=== PATIENT | male | born 1995 | race Caucasian/White ===

== ENCOUNTER → 2019-02-07 18:21 | Outpatient (CLI) | payer OTHER, SELFPAY ==
[2014-08-09 20:55] VITALS: BMI 27.3
[2019-02-07 19:09] LABS: Anion Gap 9 (5-15); BUN 12 mg/dL (7-18); BUN/Creat Ratio 10.8 RATIO (10-20); Calcium,Total 9.5 mg/dL (8.5-10.1); Chloride 106 mmol/L (98-107); Cholesterol 193 mg/dL (200); Creatinine, Serum 1.11 mg/dL (0.70-1.30); EST Glomerular Filtration Rate 86 mL/min (>60); Est Glom Filt Rate - Afr Amer 104 mL/min (>60); Glucose 78 mg/dL (74-106); High Density Lipoprotein 42 mg/dL; Potassium 3.9 mmol/L (3.5-5.1); Sodium Level 141 mmol/L (136-145); Thyroid Stim Hormone (TSH) 1.17 uIU/mL (0.358-3.74); Triglycerides 90 mg/dL; Very Low Density Lipoprotein 18 mg/dL (5-40)
== END ==
PROVIDERS: Family Provider Family Medicine; PCP Family Medicine; Referring Provider Family Medicine; Visit Provider Family Medicine
DX: I10 Essential (primary) hypertension (principal)
CPT/HCPCS: 80048; 80061; 84443

== ENCOUNTER → 2019-02-17 08:06 | Outpatient (CLI) | payer OTHER, SELFPAY ==
--- NOTE | 2019-02-17 08:11 | RDU_ITS ---
Reason For Study: HYPERTENSION Right Renal Artery Left Renal Artery Right renal artery ostium 120/31.8 Left renal artery ostium 134/30.6 RSV/EDV. PSV/EDV. Right renal artery proximal Left renal artery proximal PSV/EDV 127/37.4 PSV/EDV. 126/34.2 . Right renal artery mid 123/37 Left renal artery mid 120/40.3 PSV/EDV. PSV/EDV . Right renal artery distal 141/45.5 Left renal artery distal 131/36.5 PSV/EDV. PSV/EDV. Right Renal Parenchyma Left Renal Parenchyma Upper Pole Medula 45.8/14.1 Left upper pole medulla 45.1/14.1 PSV/EDV. PSV/EDV . Right upper pole medulla EDR .31 . Left upper pole medulla EDR .32 . Right upper pole medulla R.I. .69 . Left upper pole medulla R.I. .69 . Upper Ranjan Cortx 45.8/14.4 PSV/EDV. UP Cortex 32.4/12.3 PSV/EDV. Right upper pole cortex EDR .31 . Left upper pole cortex EDR .38 . Right upper pole cortex R.I. .69 . Left upper pole cortex R.I. .62 . Right lower Pole medulla 49.2/16.2 Left lower Pole medulla 45.1/14.6 PSV/EDV . PSV/EDV . Right lower pole medulla EDR .33 . Left lower pole medulla EDR .32 . Right lower pole medulla R.I. .67 . Left lower pole medulla R.I. .68 . Lower Pole Cortex 32.1/8.6 PSV/EDV. Lower Pole Cortx 27.4/11.4 PSV/EDV. Right lower pole cortex EDR .27 . Left lower pole cortex EDR .42 . Right lower pole cortex R.I. .73 . Left lower pole cortex R.I. .58 . Right Renal Hilar Left Renal Hilar Right Hilar avg 88.6/19.6 PSV/EDV. LT Hilar avg 71.6/17.3 PSV/EDV . Right hilar acceleration time 51 Left hilar acceleration time 37 m/sec. m/sec. Right Renal Dimensions Left Renal Dimensions Right kidney size 11.4 cm . Left kidney size 12.0 cm . Right cortical dimension 1.5 cm . Left cortical dimension 1.5 cm . Aorta Proximal abdominal aorta 1.6 X 1.5 cm . Distal abdominal aorta 1.3 X 1.4 cm . Proximal abdominal aorta peak systolic velocity is 163 cm/sec . Distal abdominal aorta peak systolic velocity is 115 cm/sec . Interpretation Summary Dimensions of the intra-abdominal aorta appear normal, without evidence of aneurysmal dilatation. Renal artery velocities are bilaterally normal. Acceleration times are normal bilaterally. There is no evidence of hemodynamically significant renal artery stenosis on either side. Renovascular resistance appears to be bilaterally normal . Cortical dimensions are bilaterally normal. Kidneys appear normal in size bilaterally. Ordering Physician: Esther Presley Referring Physician: Esther Presley Performed By: Eleni Bundy RVT
== END ==
PROVIDERS: Family Provider Family Medicine; PCP Family Medicine; Referring Provider Family Medicine; Visit Provider Family Medicine
DX: I10 Essential (primary) hypertension (principal)
CPT/HCPCS: 93975

== ENCOUNTER → 2021-08-18 | Outpatient (CLI) | payer OTHER, SELFPAY | END | disposition home or self-care (01) | LOC: LABSPEC 08-19 08:51 | PROVIDERS: PCP Family Medicine; Referring Provider Family Medicine; Visit Provider Family Medicine | DX: J20.9 Acute bronchitis, unspecified (principal) | CPT/HCPCS: 87635; U0003 ==

== ENCOUNTER 2021-11-11 14:48 | Day surgery (SDC) | payer OTHER, SELFPAY ==
[2021-11-11] VITALS (7 sets, daily range): BP systolic 114–131; BP diastolic 49–74; PULSE 55–75; RESP 16–18; TEMP 36.2–37.2; O2SAT 97–100; BMI 24.8
[2021-11-11] MEDS: Lactated Ringers 1,000 ML 100 ML IV (15:32)
--- NOTE | 2021-11-11 16:00 | EGD_PTH ---
PATIENT: CATHI KIM LOC: [facility] U#:[id number] AGE/SX: 26/M ROOM: RE11/11/[address]: Dr. Bronson Pearson DO : 1995 BED: DIS: 11/11/2021 SPEC #: [id number] RECD: 11/11/21 20:02 STATUS: DANA SERGIO #: [id number] ELIZABETH: 11/11/21 16:[address]: Bronson Pearson DEPT: SURGICAL PATHOLOGY RECD BY: Rosario Segundo ENTERED: 11/12/21 09:57 SP TYPE: EGD BIOPSY NA DR: Dr. Esther Presley MD Tissues: A - Duodenum, NOS B - Gastric mucous membrane C - Esophagus, NOS Procedures: Special Stain Group II Surgery Specimen Level IV Alcian Blue/PAS (control) HEADER OPERATION: EGD ([facility] [place]) PRE-OP DIAGNOSIS: GERD, nausea TISSUE SUBMITTED: A ? Duodenum biopsy, B ? Antrum biopsy for H. pylori and path, C ? Distal esophagus biopsy MICROSCOPIC DIAGNOSIS A. Duodenum, biopsy: No pathologic change. B. Gastric antrum, biopsy: Chronic gastritis. See comment. C. Distal esophagus, biopsy: Gastroesophageal junctional mucosa with mild chronic inflammation. No evidence of goblet cell metaplasia. Focal changes of reflux. See comment. AM:cyndie 11/13/2021 COMMENT B. The results of immunohistochemistry for Helicobacter pylori will be reported separately ([id number]). MICROSCOPIC DESCRIPTION Slides are reviewed. GROSS DESCRIPTION A - Received in fixative is one container labeled with the patient's name and designated duodenum biopsy. The specimen consists of one irregular fragment of light castro soft tissue that measures 0.5 x 0.5 x 0.1 cm. The specimen is totally submitted in one cassette. B - Received in fixative is one container labeled with the patient's name and designated antrum biopsy. The specimen consists of multiple irregular fragments of light castro soft tissue that in aggregate measure 1 x 0.6 x 0.1 cm. The specimen is totally submitted in one cassette. C - Received in fixative is one container labeled with the patient's name and designated distal esophagus biopsy. The specimen consists of two irregular fragments of light castro soft tissue that in aggregate measure 0.7 x 0.3 x 0.1 cm. The specimen is totally submitted in one cassette. / AM:cyndie 11/12/21 TC:3 CPT: 13466 x3, 38542
--- NOTE | 2021-11-11 16:00 | IMM_PTH ---
PATIENT: CATHI KIM LOC: [facility] U#:[id number] AGE/SX: 26/M ROOM: RE11/11/[address]: Dr. Bronson Pearson DO : 1995 BED: DIS: 11/11/2021 SPEC #: [id number] RECD: 11/12/21 08:52 STATUS: DANA REMoose #: [id number] ELIZABETH: 11/11/21 16:[address]: Bronson Pearson DEPT: IMMUNOHISTOCHEMISTRY RECD BY: Ernestina Christianson ENTERED: 11/12/21 08:52 SP TYPE: IMMUNO OTHR DR: Dr. Esther Presley MD Tissues: B - Stomach, NOS Procedures: H Pylori (initial) PHYSICIAN & INSTITUTION [place] [address] SPECIMEN INFORMATION: Tissue Source: B ? Antrum biopsy Clinical Info: GERD, nausea Specimen Number: [id number] CPT code: 01602 METHODOLOGY: Deparaffinized sections of prefer/formalin-fixed tissue or PAP/DQ stained slides are incubated with monoclonal/polyclonal antibodies/oligonucleotide probes. Localization is made via biotin free immunoperoxidase method. Appropriate controls are performed and reacted as expected. Results on target cell population are indicated in the following table: RESULTS: ANTIBODY / CLONE RESULT Block B H Pylori (polyclonal) negative These tests were developed and their performance characteristics determined by [facility]. They may not have been cleared or approved by the U.S. Food and Drug Administration. The FDA has determined that such clearance or approval is not necessary. INTERPRETATION: B. Antrum biopsy: Negative for Helicobacter pylori organisms. AM:cyndie 11/13/2021
--- NOTE | 2021-11-11 16:07 | EX.PCM.PN.GI ---
Subjective Subjective presents to the office today for evaluation of worsening reflux disease. He said all this began after he had a really bad break-up with his . He says that he has reflux and heartburn is getting so bad that he can taste in the back of his throat. He has been on proton pump inhibitors for a long time. He is also totally changed his diet and lost a significant amount of weight. What is concerning to him is that he developed alopecia to the point where he lost almost all of his hair in his head and is losing hair on his arms. Referred by his PCP. In June he has been having reflux symptoms since June. PCP provided omeprazole which has helped but minimall, quit drinking alcohol and caffeine, eliminated chew tobacco. Reports weight loss of approximately 30 pounds due to inability to eat because it refluxes and make him uncomfortable. He described it of feeling like a sock is in his throat, when he tried to burp he gets acidic reflux. No identified food triggers, has attempted restricting spicy foods. Reports increased stress starting over the summer. ROS Const Constitutional: Positive for fatigue and weight change ENT ENT: Positive for tinnitus Cardio Cardiology: Positive for chest pain at rest Gastro GI: Positive for abdominal pain, bloating and heartburn Skin Skin: Positive for dry skin and itchy eyes Psych Psychiatric: Positive for anxiety Endo Endocrine: Positive for fatigue and weight change Aller/Imm Allergy/Immunologic: Positive for itchy eyes Exam Const General: cooperative and comfortable Nutritional Appearance: average body habitus and well nourished [facility] Head: normal to inspection Ears: hearing grossly normal bilaterally Nose: external nose normal Face and sinus: normal facial exam Mouth: oral mucosae normal Throat: posterior oropharynx normal Eyes General: appearance normal, both eyes and all related structures Neck Neck: normal visual inspection Chest Chest palpation & inspection: normal inspection of the chest and normal palpation of entire chest wall Resp Effort & Inspection: normal respiratory effort Auscultation: Bilateral: Clear to Auscultation Cardio Palpation: normal PMI Rate: regular rate Rhythm: regular rhythm GI Inspection: normal to inspection Auscultation: normal bowel sounds Percussion: normal to percussion Palpation: no hepatosplenomegaly Skin General: no rashes or lesions noted Neuro General: patient alert Extrem General: normal to inspection Psych Affect: normal affect Quality Reporting Tobacco Screening ([facility] 138) Smoking Status: Unknown if ever smoked Assessment and Plan Assessment and Plan (1) Gastroesophageal reflux disease: Status: Acute Orders: Orders: EGD Today Plan - Dr. Dobson Friend, DO: We will perform an upper endoscopy to evaluate the upper GI tract. His symptoms sound as if he is having gastroparesis in the setting of relaxed lower esophageal sphincter. Along with having a lot of acid production secondary to anxiety or stress. However there could be something else autoimmune affecting causing some of the symptoms and specific his alopecia, weight loss and acid I will check a TSH production, free T4 free T3 and antithyroglobulin antibody. I will also check a celiac profile, VALENTINA and gastrin level. Orders: Orders: EGD Today Plan - Dr. Dobson Friend, DO: We will perform an upper endoscopy to evaluate the upper GI tract. His symptoms sound as if he is having gastroparesis in the setting of relaxed lower esophageal sphincter. Along with having a lot of acid production secondary to anxiety or stress. However there could be something else autoimmune affecting causing some of the symptoms and specific his alopecia, weight loss and acid I will check a TSH production, free T4 free T3 and antithyroglobulin antibody. I will also check a celiac profile, VALENTINA and gastrin level. (2) Gastroesophageal reflux disease: Status: Acute Orders: Orders: EGD Today Plan - Dr. Dobson Friend, DO: We will perform an upper endoscopy to evaluate the upper GI tract. His symptoms sound as if he is having gastroparesis in the setting of relaxed lower esophageal sphincter. Along with having a lot of acid production secondary to anxiety or stress. However there could be something else autoimmune affecting causing some of the symptoms and specific his alopecia, weight loss and acid I will check a TSH production, free T4 free T3 and antithyroglobulin antibody. I will also check a celiac profile, VALENTINA and gastrin level. I have re-examined the patient. There are no clinical changes since date of exam. Objective Data Objective Data Vital Signs: Vital Signs Temp Pulse Resp BP Pulse Ox 99.0 F 57 L 18 131/69 H 100 11/11/21 15:24 11/11/21 15:24 11/11/21 15:24 11/11/21 15:24 11/11/21 15:24 Oxygen Delivery Method Room Air Weight: 168 lb 6.4 oz Body Mass Index (BMI) 24.8
--- NOTE | 2021-11-11 16:35 | OP.CCLET_ITS ---
08/05/2022 Esther Presley [address] [place] [address] Re : Upper GI endoscopy procedure for Ruiz Oakley Dear Dr. Presley This procedure was performed on Thursday, November 11, 2021. My impressions and recommendations are as follows: Impressions : - LA Grade A reflux esophagitis. Biopsied. - Gastritis. Biopsied. - Erythematous duodenopathy. Biopsied. Recommendations : - Discharge patient to home. - Resume previous diet. - Continue present medications. - Await pathology results. - Return to my office in 2 weeks. My findings are described in the full procedure note, which is enclosed. If I can be of further assistance, please feel free to contact me at . Sincerely, Bronson Pearson, 11/11/2021 4:34:40 PM This report has been signed electronically.
--- NOTE | 2021-11-11 16:35 | OP.EGD_ITS ---
Patient Name: Ruiz Oakley Procedure Date: 11/11/2021 4:12 PM Date of : 1995 Age: 26 Procedure: Upper GI endoscopy Indications: Epigastric abdominal pain Providers: Bronson Pearson DO Medicines: See the Anesthesia note for documentation of the administered medications Patient Profile: This is a 26 year old male. Refer to note in patient chart for documentation of history and physical. Patient has symptoms. Complications: No immediate complications. Procedure: Pre-Anesthesia Assessment: - Prior to the procedure, a History and Physical was performed, and patient medications and allergies were reviewed. The risks and benefits of the procedure and the sedation options and risks were discussed with the patient. All questions were answered and informed consent was obtained. Patient identification and proposed procedure were verified by the physician in the pre-procedure area. Mental Status Examination: alert and oriented. Airway Examination: normal oropharyngeal airway and neck mobility. Respiratory Examination: clear to auscultation. CV Examination: normal. Prophylactic Antibiotics: The patient does not require prophylactic antibiotics. Prior Anticoagulants: The patient has taken no previous anticoagulant or antiplatelet agents. After reviewing the risks and benefits, the patient was deemed in satisfactory condition to undergo the procedure. The anesthesia plan was to use moderate sedation / analgesia (conscious sedation). Immediately prior to administration of medications, the patient was re-assessed for adequacy to receive sedatives. The heart rate, respiratory rate, oxygen saturations, blood pressure, adequacy of pulmonary ventilation, and response to care were monitored throughout the procedure. The physical status of the patient was re-assessed after the procedure. After obtaining informed consent, the endoscope was passed under direct vision. Throughout the procedure, the patient's blood pressure, pulse, and oxygen saturations were monitored continuously. The gastroscope was introduced through the mouth, and advanced to the second part of duodenum. The upper GI endoscopy was accomplished without difficulty. The patient tolerated the procedure well. Moderate Sedation: Moderate (conscious) sedation was administered by the endoscopy nurse and supervised by the endoscopist. The patient's oxygen saturation, heart rate, blood pressure and response to care were monitored. Total physician intraservice time was 15 minutes. Scope In: 4:24:08 PM Scope Out: 4:30:52 PM Total Procedure Duration Time 0 hours 6 minutes 44 seconds Findings: LA Grade A (one or more mucosal breaks less than 5 mm, not extending between tops of 2 mucosal folds) esophagitis with no bleeding was found 34 to 35 cm from the incisors. Biopsies were taken with a cold forceps for histology. Verification of patient identification for the specimen was done. Estimated blood loss was minimal. Scattered mild inflammation characterized by congestion (edema) and erythema was found in the stomach. Biopsies were taken with a cold forceps for histology. Verification of patient identification for the specimen was done. Estimated blood loss was minimal. Patchy mildly erythematous mucosa without active bleeding and with no stigmata of bleeding was found in the first portion of the duodenum and in the second portion of the duodenum. This was biopsied with a cold forceps for histology. Verification of patient identification for the specimen was done. Estimated blood loss was minimal. Impression: - LA Grade A reflux esophagitis. Biopsied. - Gastritis. Biopsied. - Erythematous duodenopathy. Biopsied. Recommendation: - Discharge patient to home. - Resume previous diet. - Continue present medications. - Await pathology results. - Return to my office in 2 weeks. Procedure Code(s): --- Professional --- 08234, Esophagogastroduodenoscopy, flexible, transoral; with biopsy, single or multiple G0500, Moderate sedation services provided by the same physician or other qualified health childcare worker performing a gastrointestinal endoscopic service that sedation supports, requiring the presence of an independent trained observer to assist in the monitoring of the patient's level of consciousness and physiological status; initial 15 minutes of intra-service time; patient age 5 years or older (additional time may be reported with 51884, as appropriate) CPT copyright 2017 [employer]. All rights reserved. The codes documented in this report are preliminary and upon steam heating installer review may be revised to meet current compliance requirements. Bronson Pearson DO 11/11/2021 4:34:40 PM This report has been signed electronically. Number of Addenda: 1 Note Initiated On: 11/11/2021 4:12 PM Addendum Number: 1 Addendum Date: 08/05/2022 7:13:53 AM MAC was used instead of moderate sedation for the patient. Bronson Pearson DO 08/05/2022 7:14:01 AM This report has been signed electronically.
--- NOTE | 2021-11-12 07:50 | HP.PCM_ITS ---
History and Physical Date of Admission: 11/12/21 CATHI KIM, is a 26 M who presents to the office today for evaluation of worsening reflux disease. He said all this began after he had a really bad break-up with his . He says that he has reflux and heartburn is getting so bad that he can taste in the back of his throat. He has been on proton pump inhibitors for a long time. He is also totally changed his diet and lost a significant amount of weight. What is concerning to him is that he developed alopecia to the point where he lost almost all of his hair in his head and is losing hair on his arms. Referred by his PCP. In June he has been having reflux symptoms since June. PCP provided omeprazole which has helped but minimall, quit drinking alcohol and caffeine, eliminated chew tobacco. Reports weight loss of approximately 30 pounds due to inability to eat because it refluxes and make him uncomfortable. He described it of feeling like a sock is in his throat, when he tried to burp he gets acidic reflux. No identified food triggers, has attempted restricting spicy foods. Reports increased stress starting over the summer. ROS Const Constitutional: Positive for fatigue and weight change ENT ENT: Positive for tinnitus Cardio Cardiology: Positive for chest pain at rest Gastro GI: Positive for abdominal pain, bloating and heartburn Skin Skin: Positive for dry skin and itchy eyes Psych Psychiatric: Positive for anxiety Endo Endocrine: Positive for fatigue and weight change Aller/Imm Allergy/Immunologic: Positive for itchy eyes Exam Const General: cooperative and comfortable Nutritional Appearance: average body habitus and well nourished [facility] Head: normal to inspection Ears: hearing grossly normal bilaterally Nose: external nose normal Face and sinus: normal facial exam Mouth: oral mucosae normal Throat: posterior oropharynx normal Eyes General: appearance normal, both eyes and all related structures Neck Neck: normal visual inspection Chest Chest palpation & inspection: normal inspection of the chest and normal palpation of entire chest wall Resp Effort & Inspection: normal respiratory effort Auscultation: Bilateral: Clear to Auscultation Cardio Palpation: normal PMI Rate: regular rate Rhythm: regular rhythm GI Inspection: normal to inspection Auscultation: normal bowel sounds Percussion: normal to percussion Palpation: no hepatosplenomegaly Skin General: no rashes or lesions noted Neuro General: patient alert Extrem General: normal to inspection Psych Affect: normal affect Quality Reporting Tobacco Screening ([facility] 138) Smoking Status: Unknown if ever smoked Assessment and Plan Assessment and Plan (1) Gastroesophageal reflux disease: Status: Acute Orders: Orders: EGD Today Plan - Dr. Dobson Friend, DO: We will perform an upper endoscopy to evaluate the upper GI tract. His symptoms sound as if he is having gastroparesis in the setting of relaxed lower esophageal sphincter. Along with having a lot of acid production secondary to anxiety or stress. However there could be something else autoimmune affecting causing some of the symptoms and specific his alopecia, weight loss and acid I will check a TSH production, free T4 free T3 and antithyroglobulin antibody. I will also check a celiac profile, VALENT[place] and gastrin level. Orders: Orders: EGD Today Plan - Dr. Dobson Friend, DO: We will perform an upper endoscopy to evaluate the upper GI tract. His symptoms sound as if he is having gastroparesis in the setting of relaxed lower esophageal sphincter. Along with having a lot of acid production secondary to anxiety or stress. However there could be something else autoimmune affecting causing some of the symptoms and specific his alopecia, weight loss and acid I will check a TSH production, free T4 free T3 and antithyroglobulin antibody. I will also check a celiac profile, VALENTINA and gastrin level. (2) Gastroesophageal reflux disease: Status: Acute Orders: Orders: EGD Today Plan - Dr. Dobson Friend, DO: We will perform an upper endoscopy to evaluate the upper GI tract. His symptoms sound as if he is having gastroparesis in the setting of relaxed lower esophageal sphincter. Along with having a lot of acid production secondary to anxiety or stress. However there could be something else autoimmune affecting causing some of the symptoms and specific his alopecia, weight loss and acid I will check a TSH production, free T4 free T3 and antithyroglobulin antibody. I will also check a celiac profile, VALENTINA and gastrin level. I have re-examined the patient. There are no clinical changes since date of exam.
== END 2021-11-11 17:29 | disposition home or self-care (01) ==
LOC: EN 14:50 → AC 14:55
PROVIDERS: PCP Family Medicine; Referring Provider Family Medicine; Visit Provider Internal Medicine Gastroenterology
PROC: 0DJ08ZZ Inspection of Upper Intestinal Tract, Via Natural or Artificial Opening Endoscopic (ICD-10-PCS; CPT 43235; principal; 2021-11-11 15:55)
DX: K29.50 Unspecified chronic gastritis without bleeding (principal); K21.00 Gastro-esophageal reflux disease with esophagitis, without bleeding; L65.9 Nonscarring hair loss, unspecified; R63.4 Abnormal weight loss; Z68.24 Body mass index [BMI] 24.0-24.9, adult; Z87.891 Personal history of nicotine dependence; Z79.899 Other long term (current) drug therapy
CPT/HCPCS: 43239; 87426; 88305; 88313; 88342; J7120; J2405

== ENCOUNTER → 2023-02-19 | Outpatient (CLI) | payer OTHER, SELFPAY ==
--- NOTE | 2023-02-19 07:58 | NM_ITS ---
CLINICAL: 27-year-old male with history of gastroesophageal reflux disease. SEMI-SOLID PHASE 99m Tc SULFUR COLLOID GASTRIC EMPTYING STUDY COMPARISON: None available FINDINGS: The patient was administered 1.2 mCi of 99m Tc sulfur colloid mixed with oatmeal and consumed per os. Image acquisitions in the anterior-posterior were obtained for 60 minutes. There is prompt visualization of the stomach. There is no gastroesophageal reflux identified. The T ? raw data emptying was calculated to be 22.69 minutes, (Normal: 12-56 minutes). NM/Gastric Emptying Study IMPRESSION: 1. NORMAL 99m Tc sulfur colloid semi-solid phase (oatmeal) gastric emptying imaging examination. A. There is normal and preserved semi-solid phase gastric emptying compared to normal controls. (Jenna et al, J Nucl Med Tech 38: 186, 2010). Electronically Signed: Lawson Varghese, at 20:47 EDT ,
[2023-02-19 08:51] LABS: Absolute Lymphocyte Count 1.96 X10^3/uL (0.83-4.51); Absolute Neutrophil Count 3.1 X10^3/uL (2.0-7.7); Basophil# 0.05 X10^3/uL; Basophil% 0.9 % (0-1); Eosinophil# 0.17 X10^3/uL; Hematocrit 43.4 % (40-54); Hemoglobin 14.2 g/dL (13.0-16.5); Lymphocyte # 1.96 X10^3/ul (0.83-4.51); Lymphocyte % 34.8 % (19-41); Mean Corp Hgb Conc 32.7 g/dL (32-36); Mean Corpuscular Hgb 29.3 pg (27.0-32.0); Mean Corpuscular Volume 89.7 fL (80-94); Mean Platelet Vol. 9.4 fl (6.2-12.0); Monocyte% 7.1 % (0-10); NRBC Flagged by Analyzer 0 % (0-5); Neutrophil # 3.05 X10^3/uL (2.7-7.7); Platelet Count 258 K/mm3 (150-450); RBC Distribution Width CV 12.6 % (11.6-14.6); RBC Distribution Width SD 41.1 fl (35.1-43.9); Red Blood Count 4.84 M/mm3 (4.6-6.2); White Blood Count 5.6 K/mm3 (4.4-11.0)
[2023-02-19 09:07] LABS: Erythrocyte Sedimentation Rate 1 mm/hr (0-20)
[2023-02-19 09:13] LABS: ALB/GLOB Ratio 1.1 RATIO (0.9-2.4); AST(SGOT) 15 U/L (15-37); Alanine Aminotransfer ALT/SGPT 37 U/L (16-61); Alkaline Phosphatase 54 U/L (45-117); Anion Gap 4 (5-15); BUN 17 mg/dL (7-18); CRP < 2.90 mg/L (0.0-3.0); Calcium,Total 8.9 mg/dL (8.5-10.1); Chloride 110 mmol/L (98-107); Creatinine, Serum 1.13 mg/dL (0.70-1.30); EST Glomerular Filtration Rate 82 mL/min (>60); Est Glom Filt Rate - Afr Amer 99 mL/min (>60); Globulin 3.5 g/dL (2.2-4.2); Glucose 99 mg/dL (74-106); LDH 132 U/L (87-241); Protein, Total 7.5 g/dL (6.4-8.2); Sodium Level 142 mmol/L (136-145)
[2023-02-22 14:08] LABS: Anti-Centromere B Ab <0.2 AI (0.0-0.9); Anti-Chromatin <0.2 AI (0.0-0.9); Anti-Jo <0.2 AI (0.0-0.9); Anti-Scleroderma-70 AB <0.2 AI (0.0-0.9); RNP Ab <0.2 AI (0.0-0.9); SJOGREN'S Anti-SS-A test < 0.2 AI (0.0-0.9); SJOGREN'S Anti-SS-B test < 0.2 AI (0.0-0.9); Smith Ab <0.2 AI (0.0-0.9)
[2023-02-22 14:32] LABS: Anti-dsDNA Ab <1 IU/mL (0-9)
[2023-02-22 16:09] LABS: Cytoplasmic Ab (C-ANCA) <1:20 titer (Neg:<1:20); Endomysial Antibody IgA Negative (Negative); Immunoglobulin A 280 mg/dL (90-386); Immunoglobulin E 61 IU/mL (6-495); Immunoglobulin G 1097 mg/dL (603-1613); Immunoglobulin M 43 mg/dL (20-172)
[2023-02-22 17:45] LABS: Immunoglobulin A 272 mg/dL (90-386); Perinuclear Ab (P-ANCA) <1:20 titer (Neg:<1:20); t-Transglutaminase IgA <2 U/mL (0-3)
== END | disposition home or self-care (01) ==
PROVIDERS: PCP Family Medicine; Referring Provider Nurse Practitioner Adult Health; Visit Provider Nurse Practitioner Adult Health
DX: K21.9 Gastro-esophageal reflux disease without esophagitis (principal)
CPT/HCPCS: 36415; 78264; 80053; 82784; 82785; 83516; 83615; 85025; 85652; 86140; 86225; 86235; 86255; 86256; A9541